=== PATIENT | female | born 1965 ===

== ENCOUNTER → 2021-08-20 | Outpatient (CLI) | payer BC | LOC: MC.RAD 08:30 | DX: N63.10 Unspecified lump in the right breast, unspecified quadrant (principal) ==

== ENCOUNTER → 2021-10-13 | Outpatient (CLI) | payer BC ==
[~2021-10-13] MED LIST: BETAXOLOL HCL OP; COZAAR 50MG50 MG/TAB PO; NORCO 325 MG-51 TAB PO; XALATAN EYE DROPS OD
== END ==
LOC: MC.RAD 13:58
DX: C50.911 Malignant neoplasm of unspecified site of right female breast (principal)
CPT/HCPCS: 32605; C1769

== ENCOUNTER 2021-10-14 08:00 | Day surgery (SDC) | payer BC ==
[~2021-10-14] VITALS: Ht 162.6 cm; Wt 79.0 kg
[2021-10-14] MEDS ORDERED: XALATAN EYE DROPS OD (09:28)
[2021-10-14] MEDS ORDERED: COZAAR 50MG50 MG/TAB PO (09:29)
[2021-10-14] MEDS ORDERED: BETAXOLOL HCL OP (09:29)
[2021-10-14 09:30] VITALS: BP 129/66; PULSE 80; TEMP 98.5
[2021-10-14] MEDS ORDERED: NORCO 325 MG-51 TAB PO (14:45)
[2021-10-14 15:40] VITALS: BP 124/65; PULSE 68; TEMP 98.2
--- NOTE | 2021-10-14 15:40 | NUR ---
RECEIVED PT FROM PACU. REPORT RECEIVED FROM JOSE CANTRELL. VS OBTAINED. PT ON 2L O2. REORIENTED TO ROOM AND CALL LIGHT. PT TOLERATING ICE CHIPS. WILL CONTINUE TO MONITOR.
[2021-10-14 15:55] VITALS: BP 110/49; PULSE 68
--- NOTE | 2021-10-14 15:55 | NUR ---
PT CONTINUES TO REST COMFORTABLY. PT TOLERATING APPLE JUICE WITHOUT DIFFICULTY. PT ON 2L NC. PT DENIES ANY NEEDS AT THIS TIME.
[2021-10-14 16:10] VITALS: BP 125/82; PULSE 71
--- NOTE | 2021-10-14 16:10 | NUR ---
PT CONTINUES TO REST COMFORTABLY. PT DENIES ANY NEEDS. PT ON 0.5L NC. PT TOLERATING MUFFIN AND APPLE JUICE. WILL CONTINUE TO MONITOR PT. AT BEDSIDE.
[2021-10-14 16:25] VITALS: BP 118/43; PULSE 71
--- NOTE | 2021-10-14 16:25 | NUR ---
PT CONTINUES TO REST COMFORTABLY. STATES PAIN IS TOLERABLE. WILL CONTINUE TO MONITOR PT. PT ON RA.
[2021-10-14 16:40] VITALS: BP 105/59; PULSE 71
--- NOTE | 2021-10-14 16:40 | NUR ---
PT CONTINUES TO DENY ANY NEEDS AT THIS TIME. CONTINUES TO REST COMFORTABLY. TOLERATING PO. WILL CONTINUE TO MONITOR PT.
--- NOTE | 2021-10-14 17:10 | NUR ---
IV DC'D. PT TOLERATED WELL.
--- NOTE | 2021-10-14 17:12 | NUR ---
PT UP TO RESTROOM. AMBULATED WITH STAND BY ASSIST. PT VOIDED WITHOUT DIFFICULTY.
--- NOTE | 2021-10-14 17:20 | NUR ---
DISCHARGE EDUCATION COMPLETED WITH PT AND HER . VERBALIZED UNDERSTANDING OF HOME AND FOLLOW UP CARE. ALL QUESTIONS ANSWERED. DISCHARGE PAPERWORK GIVEN TO PT'S .
--- NOTE | 2021-10-14 17:30 | NUR ---
OFF UNIT PER WHEELCHAIR. DISCHARGE TO HOME WITH PER PERSONAL VEHICLE.
== END 2021-10-14 17:35 | disposition home or self-care (01) ==
LOC: SDCO 08:00
DX: C50.411 Malignant neoplasm of upper-outer quadrant of right female breast (principal); I10 Essential (primary) hypertension; Z79.899 Other long term (current) drug therapy
CPT/HCPCS: A4648; A9520; J1170; J2250; J2405; J2704; J2795; J3010; J7120